=== PATIENT | male | born 1965 | race Two or more races ===

== ENCOUNTER 2022-09-03 22:19 | Emergency (ER) | payer MEDICAID, OTHER ==
[~2022-09-03] VITALS: Ht 172.7 cm; Wt 99.8 kg
--- NOTE | 2022-09-03 22:19 | NUR ---
BIBRA 878 FOR C/O DIZZINESS S/P USING KEN AND RHINO PILLS. PT AAOX4, IN NAD, SITTING IN BED, VITALS CHECKED.
--- NOTE | 2022-09-03 22:34 | NUR ---
18GA TO LEFT AC ESTABLISHED; BLOOD WORK COLLECTED, SENT TO LAB
--- NOTE | 2022-09-03 22:40 | NUR ---
XR AT BEDSIDE
[2022-09-03] MEDS ORDERED: IV NS 0.9% 1,000 ML BAG IV ONE (23:00)
[2022-09-03 23:31] LABS: BASOPHILS % (AUTO) 0.6 % (0.0-2.0); EOSINOPHILS % (AUTO) 0.8 % (0.0-6.0); HEMATOCRIT 43 % (39-51); HEMOGLOBIN 14.7 g/dL (13.5-17.5); LYMPHOCYTES # (AUTO) 1.9 K/uL (0.8-4.8); LYMPHOCYTES % (AUTO) 23.2 % (20.0-44.0); MEAN CORPUSCULAR HGB CONC 34 g/dl (31.0-36.0); MEAN CORPUSCULAR VOLUME 95 fL (80-96); MONOCYTES # (AUTO) 0.8 K/uL (0.1-1.30); MONOCYTES % (AUTO) 9.3 % (2.0-12.0); NEUTROPHILS # (AUTO) 5.5 K/uL (1.8-8.9); NEUTROPHILS % (AUTO) 66.1 % (43.0-81.0); PLATELET COUNT (AUTO) 320 K/uL (150-450); RED BLOOD CELL COUNT(AUTO) 4.56 MIL/uL (4.5-6.0); WHITE BLOOD COUNT (AUTO) 8.3 K/uL (4.3-11.0)
--- NOTE | 2022-09-03 23:39 | NUR ---
CRISTELA [phone]
[2022-09-03 23:58] LABS: ALANINE AMINOTRANSFERASE 36 U/L (12-78); ALBUMIN 4.2 g/dL (3.4-5.0); ALKALINE PHOSPHATASE 88 U/L (46-116); ASPARTATE AMINOTRANSFERASE 24 U/L (15-37); BILIRUBIN,DIRECT 0.1 mg/dL (0.0-0.2); BILIRUBIN,TOTAL 0.4 mg/dL (0.2-1.0); CALCIUM, SERUM 9.3 mg/dL (8.5-10.1); CARBON DIOXIDE 27 mmol/L (21-32); CHLORIDE 106 mmol/L (98-107); CREATININE 0.9 mg/dL (0.6-1.3); GLUCOSE 112 mg/dL (74-106); POTASSIUM 3.5 mmol/L (3.5-5.1); SODIUM SERUM 142 mmol/L (136-145); TOTAL PROTEIN, SERUM 8.5 g/dL (6.4-8.2); UREA NITROGEN, BLOOD 13 mg/dL (7-18)
[2022-09-04] MEDS ORDERED: FAMOTIDINE (20 MG) 20 MG TABLET ONE (01:55)
[2022-09-04] MEDS ORDERED: FAMOTIDINE (20 MG) 20 MG TABLET PO ONE (02:00)
--- NOTE | 2022-09-04 02:03 | NUR ---
[facility] CALLED TO NOTIFY PATIENT IS BEING DISCHARGED
--- NOTE | 2022-09-04 02:05 | NUR ---
Patient discharged to home in stable condition. Written and verbal after care instructions given. Patient verbalizes understanding of instruction. IV removed. Catheter intact and site benign. Pressure and 4x4 applied to site. No bleeding noted.
[2022-09-04 02:13] VITALS: BP 131/88; TEMP 98.7
== END 2022-09-04 02:05 | disposition home or self-care (01) ==
LOC: ER 22:19
DX: F15.10 Other stimulant abuse, uncomplicated (principal); R42 Dizziness and giddiness
CPT/HCPCS: 99285; 96360; 71045; 93005 ×2; 85025; 80048; 80076; 36415 ×2; 84484 ×2; J7030